=== PATIENT | female | born 1945 | race Caucasian/White ===

== ENCOUNTER → 2017-01-05 | Outpatient (CLI) | payer MEDICARE ==
[~2017-01-05] MED LIST: CA C1TAB59 PO; CYAN1TAB22 PO; FLAX1000 PO; FOLI-17 PO; INFL100V IV; IRBE150T25 PO; LEVO88TA4 PO; OMEP-110 PO
== END | disposition home or self-care (01) ==
LOC: CFH 12:12
PROVIDERS: ATTEND Internal Medicine Critical Care Medicine
DX: J84.89 Other specified interstitial pulmonary diseases (principal); J98.4 Other disorders of lung
CPT/HCPCS: 71250

== ENCOUNTER → 2017-07-04 | Outpatient (CLI) | payer MEDICARE | END | disposition home or self-care (01) | LOC: CFH 10:22 | PROVIDERS: ATTEND Nurse Practitioner | DX: L90.5 Scar conditions and fibrosis of skin (principal) | CPT/HCPCS: 71250 ==

== ENCOUNTER → 2018-03-16 | Outpatient (CLI) | payer MEDICARE | END | disposition home or self-care (01) | LOC: CFH 08:48 | PROVIDERS: ATTEND Internal Medicine Critical Care Medicine | DX: J47.9 Bronchiectasis, uncomplicated (principal); J98.4 Other disorders of lung; J84.89 Other specified interstitial pulmonary diseases | CPT/HCPCS: 71250 ==

== ENCOUNTER → 2019-02-19 | Outpatient (CLI) | payer MEDICARE | END | disposition home or self-care (01) | LOC: CFH 11:11 | PROVIDERS: ATTEND Internal Medicine Critical Care Medicine | DX: J47.9 Bronchiectasis, uncomplicated (principal); J84.89 Other specified interstitial pulmonary diseases | CPT/HCPCS: 71250 ==

== ENCOUNTER 2020-01-23 09:43 | Outpatient (CLI) | payer MEDICARE ==
[~2020-01-23 09:43] MED LIST changes: -IRBE150T25 PO; +IRBE150T9 PO
== END 2020-01-23 23:59 | disposition home or self-care (01) ==
LOC: CFH 09:43
PROVIDERS: ATTEND Internal Medicine
DX: R91.8 Other nonspecific abnormal finding of lung field (principal); J92.9 Pleural plaque without asbestos; J98.4 Other disorders of lung
CPT/HCPCS: 71250

== ENCOUNTER → 2020-03-09 | Outpatient (CLI) | payer MEDICARE | END | disposition home or self-care (01) | LOC: CFH 10:12 | PROVIDERS: ATTEND Internal Medicine | DX: A31.0 Pulmonary mycobacterial infection (principal); J98.4 Other disorders of lung | CPT/HCPCS: 71046 ==